=== PATIENT | female | born 1960 | race Caucasian/White ===

== ENCOUNTER 2020-12-14 12:30 | Emergency (ER) | payer MEDICAID ==
[~2020-12-14] VITALS: Ht 152.4 cm; Wt 84.0 kg
[2020-12-14 12:33] VITALS: BP 136/83
[2020-12-14] MEDS ORDERED: IBUP-2030 MT (17:00)
== END 2020-12-14 19:17 | disposition home or self-care (01) ==
LOC: ER 12:30
DX: M79.671 Pain in right foot (principal); M79.661 Pain in right lower leg; I10 Essential (primary) hypertension; Z98.890 Other specified postprocedural states
CPT/HCPCS: 73630; 93971; 99284

== ENCOUNTER 2021-11-03 17:00 | Emergency (ER) | payer MEDICAID ==
[~2021-11-03] VITALS: Ht 157.5 cm; Wt 87.0 kg
[~2021-11-03 17:00] MED LIST: IBUP-2030 MT
[2021-11-03 17:09] VITALS: BP 179/69
== END 2021-11-03 21:58 | disposition left against medical advice (07) ==
LOC: ER 17:00
DX: Z53.21 Procedure and treatment not carried out due to patient leaving prior to being seen by health care provider (principal)
CPT/HCPCS: 93005